=== PATIENT | female | born 1990 | race Caucasian/White ===

== ENCOUNTER 2016-08-20 15:47 | Emergency (ER) | payer OTHER ==
[~2016-08-20] VITALS: Ht 162.6 cm; Wt 76.5 kg
[~2016-08-20 15:47] MED LIST: PANT40TA4 PO; [UNRECOGNIZED DRUG - OTHER]
[2016-08-20 15:52] VITALS: Ht 162.6 cm; Wt 76.5 kg
[2016-08-20 17:40] LABS: ADD SCAN DIFF NO
[2016-08-20 17:43] LABS: BASOPHIL # 0.1 10^3/ul (0.0-0.1); BASOPHILS % 0.6 % (0.0-2.0); EOSINOPHILS # 0.9 10^3/ul (0.0-0.5); EOSINOPHILS % 9.6 % (0.0-7.0); HEMATOCRIT 37.9 % (37.0-47.0); HEMOGLOBIN 12.1 g/dl (12.0-16.0); LYMPHOCYTES # 1.6 10^3/ul (0.8-2.9); LYMPHOCYTES % 16.5 % (15.0-51.0); MEAN CORPUSCULAR HEMOGLOBIN 29.4 pg (29.0-33.0); MEAN CORPUSCULAR HGB CONC 31.9 g/dl (32.0-37.0); MEAN PLATELET VOLUME 9.5 fl (7.4-10.4); MONOCYTE # 0.8 10^3/ul (0.3-0.9); MONOCYTES % 7.6 % (0.0-11.0); NEUTROPHIL # 6.4 10^3/ul (1.6-7.5); NEUTROPHILS % 65.3 % (39.0-77.0); PLATELET COUNT 432 10^3/UL (140-415); RED BLOOD COUNT 4.12 10^6/ul (4.20-5.40); RED CELL DISTRIBUTION WIDTH 14.4 % (11.5-14.5); WHITE BLOOD COUNT 9.8 10^3/ul (4.8-10.8)
--- NOTE | 2016-08-20 17:43 | RADRPT ---
PROCEDURE: US OB. CLINICAL INDICATION: Vaginal bleeding. TECHNIQUE: Transabdominal imaging of the gravid uterus was performed. Images are reviewed on a h igh-resolution PACS workstation. COMPARISON: None available. FINDINGS: A single intrauterine is identified. The crown-rump length equals 1.83 cm. The estimated gestational age equals 7 weeks 6 days by ultrasound criteria. No cardiac activity is identifi ed.. No subchorionic hemorrhage is identified. The uterus measures 9.0 x 5.5 cm. The ovaries are not identified. There are no adnexal masses and th ere is no free fluid within the pelvis. IMPRESSION: 1. Single intrauterine with an estimated gestational age of 7 weeks 6 days by ultrasound criteria with no cardiac activity, consistent with a failed early . Short interval f ollow-up is recommended. These findings discussed with Dr. Sandra in the ED at 1736 hours on 08/20/2016. RPTAT: GG .Tra Pinto MD, MD Date Time Electronically viewed and signed by .Tra Pinto MD, MD on 08/20/2016 17:42 .P/
[2016-08-20 17:53] LABS: ADD UMIC YES; URINE BILIRUBIN (Dip) NEGATIVE (NEGATIVE); URINE BLOOD (Dip) NEGATIVE (NEGATIVE); URINE COLOR LT. YELLOW (YELLOW); URINE GLUCOSE (Dip) NEGATIVE (NEGATIVE); URINE KETONES (Dip) NEGATIVE (NEGATIVE); URINE LEUKOCYTE ESTERASE (Dip) TRACE (NEGATIVE); URINE NITRITE (Dip) NEGATIVE (NEGATIVE); URINE TOTAL PROTEIN (Dip) NEGATIVE (NEGATIVE); URINE UROBILINOGEN (Dip) 0.2 E.U./dL (0.1-1.0)
[2016-08-20 18:03] LABS: SQUAMOUS EPITHELIAL CELL,UR FEW; URINE RBCS NONE SEEN /HPF (0)
[2016-08-20 18:25] VITALS: BP 122/84; PULSE 101; RESP 16
--- NOTE | 2016-08-20 18:46 | ERD ---
ER Documentation Chief Complaint Date/Time DATE: 08/20/16 TIME: 18:44 Chief Complaint NEEDS ULTRASOUND, LMP 06/10/16, HAD U/S YESTERDAY NO HEART BEAT HPI Patient is a 25-year-old female with no medical problems who presents for an ultrasound. The patient said that she went to her OB clinic twice to get an ultrasound but the machine was not working. Yesterday she had an ultrasound done but they could not hear her heartbeat. She says "I need to know if there is a heartbeat and how far along I am". She has no vaginal bleeding and no cramping. She has no other complaints. Her last mental period was June 10. ROS All systems reviewed and are negative except as per history of present illness. Medications Home Meds Reported Medications Pantoprazole* (Pantoprazole*) 40 Mg Tablet.dr, 40 MG PO DAILY, TAB 06/07/14 [Delzityl] No Conflict Check 06/07/14 Allergies Allergies: Coded Allergies: No Known Allergy (Unverified , 04/13/14) PMhx/Soc Anesthesia Reaction: No Hx Neurological Disorder: No Hx Respiratory Disorders: No Hx Cardiac Disorders: No Hx Psychiatric Problems: No Hx Miscellaneous Medical Probl: No Hx Alcohol Use: No Hx Substance Use: No Hx Tobacco Use: No FmHx Family History: diabetes Physical Exam Vitals Vital Signs Date Time Temp Pulse Resp B/P Pulse Ox O2 Delivery O2 Flow Rate FiO2 08/20/16 18:25 101 16 122/84 100 Room Air 08/20/16 15:52 98.4 95 18 122/68 100 Physical Exam Const: No acute distress Head: Atraumatic Eyes: Normal Conjunctiva ENT: Normal External Ears, Nose and Mouth. Neck: Full range of motion..~ No meningismus. Resp: Clear to auscultation bilaterally Cardio: Regular rate and rhythm, no murmurs Abd: Soft, non tender, non distended. Normal bowel sounds Skin: No petechiae or rashes Back: No midline or flank tenderness Ext: No cyanosis, or edema Neur: Awake and alert Psych: Normal Mood and Affect Result Diagram: 08/20/16 1730 Results 24 hrs Laboratory Tests Test 08/20/16 17:30 White Blood Count 9.810^3/ul Red Blood Count 4.1210^6/ul Hemoglobin 12.1g/dl Hematocrit 37.9% Mean Corpuscular Volume 92.0fl Mean Corpuscular Hemoglobin 29.4pg Mean Corpuscular Hemoglobin Concent 31.9g/dl Red Cell Distribution Width 14.4% Platelet Count 27641^3/UL Mean Platelet Volume 9.5fl Neutrophils % 65.3% Lymphocytes % 16.5% Monocytes % 7.6% Eosinophils % 9.6% Basophils % 0.6% Nucleated Red Blood Cells % 0.0/100WBC Neutrophils # 6.410^3/ul Lymphocytes # 1.610^3/ul Monocytes # 0.810^3/ul Eosinophils # 0.910^3/ul Basophils # 0.110^3/ul Nucleated Red Blood Cells # 0.010^3/ul Urine Color LT. YELLOW Urine Clarity CLEAR Urine pH 6.0 Urine Specific [place] <=1.005 Urine Ketones NEGATIVE Urine Nitrite NEGATIVE Urine Bilirubin NEGATIVE Urine Urobilinogen 0.2 E.U./dL Urine Leukocyte Esterase TRACE Urine Microscopic RBC NONE SEEN/HPF Urine Microscopic WBC 2-5/HPF Urine Squamous Epithelial Cells FEW Urine Hemoglobin NEGATIVE Urine Glucose NEGATIVE% Urine Total Protein NEGATIVE Procedures/MDM Ultrasound shows missed per radiology. Patient is a 25-year-old female presents for ultrasound. Her ultrasound unfortunately shows a miscarriage. Laboratory studies are basically normal. The patient will be discharged. She has no bleeding at this time. She will need to follow-up with her OB clinic for dilation and curettage. The patient can return for any worsening symptoms. She has no signs of ectopic at this time. Departure Diagnosis: Primary Impression: Missed Condition: Fair Patient Instructions: Missed Miscarriage Referrals: Your OB clinic Additional Instructions: SPECIALIST: YOU HAVE A MEDICAL CONDITION WHICH REQUIRES YOU TO SEE A SPECIALIST WITHIN THE NEXT 1-2 DAYS. PLEASE FOLLOW UP WITH YOUR PRIMARY PHYSICIAN FOR REFFERAL.IF YOU DO NOT HAVE A PRIMARY CARE PHYSICIAN AND/OR YOU CAN NOT AFFORD TO SEE A PHYSICIAN THE FOLLOWING RESOURCES HAVE BEEN SUPPLIED TO YOU. IT IS YOUR RESPONSIBILITY TO BE SEEN BY THE SPECIALIST IGOR BENSON MD August 20, 2016 18:46
== END 2016-08-20 18:26 | disposition home or self-care (01) ==
LOC: FTE 15:47
DX: O02.1 Missed abortion (principal)
CPT/HCPCS: 76801; 81001; 84702; 85025; 86900; 86901; Z7502; 81003

== ENCOUNTER 2017-11-06 22:12 | Emergency (ER) | END 2017-11-06 23:12 | disposition left against medical advice (07) ==

== ENCOUNTER 2018-04-03 22:33 | Inpatient (IN) | payer OTHER ==
[~2018-04-03] VITALS: Ht 157.5 cm; Wt 99.7 kg
[2018-04-03 22:53] VITALS: BP 115/55; PULSE 91; RESP 17; Ht 157.5 cm; Wt 99.7 kg
[2018-04-04] MEDS ORDERED: MAGNESIUM SULFATE 4 GM/100 ML 100 ML IV ONE (00:30)
[2018-04-04] MEDS ORDERED: ACETAMINOPHEN 325 MG TAB PO PRN (00:30)
--- NOTE | 2018-04-04 00:34 | HP ---
Date/Time of Note Date/Time of Note DATE: 04/04/18 TIME: 00:30 OB - History Hx of Present Free Text/Dictation 27-year-old 3 para 0 at 33 weeks and 4 days of gestation with estimated date of delivery May 18, 2018 Patient presents with chief complaint of abdominal pain She reports positive movement, denies any vaginal bleeding or leaking fluid Patient obstetrical history significant for termination of x2 Care: Good Care Obstetrical Complications: None Medical Complications: None Past Family/Social History * Past Medical, Surgical, Family and Obstetric Histories reviewed from chart. OB Admission Exam Vital Signs Vital Signs Vital Signs Date Temp Pulse Resp B/P (MAP) Pulse Ox O2 O2 Flow FiO2 Time Delivery Rate 04/03/18 98.2 91 17 115/55 Room Air 22:53 (75) Physical Exam HEENT: WNL Heart: Rhythm Normal Lungs: Clear, Equal Abdomen: WNL Extremities: Normal Reflexes: Normal Membranes: Intact Heart Rate: 140's Accelerations: Accelerations Present Decelerations: No Decelerations Varibility: Moderate Contractions on Admission: None Last 72 hours Lab Results PROCEDURE: US OB biophysical profile. CLINICAL INDICATION: well-being TECHNIQUE: Multiple sonographic images of the pelvis were obtained. The images were reviewed on a PACS workstation. COMPARISON: None FINDINGS: There is a single fetus in longitudinal lie, cephalic presentation. Cardiac activity is documented at 131 beats per minute. . The placenta is anterior and well clear of the cervix. Amniotic fluid index equals 10.9. Biophysical profile: movement 2/2 tone 2/2. breathing 2/2 CHRISTINA 2/2 Total 11/17 IMPRESSION: 1. Biophysical profile of 11/17. RPTAT:AAJJ . Physician Stanley Date Time Electronically viewed and signed by Physician Stanley on 04/04/2018 00:53 GW/ CC: GAMAL CALABRESE MD [id number] PROCEDURE: US OB. CLINICAL INDICATION: labor, estimated weight TECHNIQUE: Multiple sonographic images of the pelvis were obtained. The images were reviewed on a PACS workstation. COMPARISON: 12/31/2017 FINDINGS: The cervix length is 1.2 cm measured transvaginally . There is a single viable intrauterine gestation. Cardiac activity is present with 134 beats per minute. The fetus is in longitudinal lie, cephalic presentation.. Measurements were made in order to determine age. The results are as follows: BPD = 8.1 cm HC = 29.9 cm AC = 32.6 cm FL = 6.6 cm. Based on these current measurements: Estimated gestational age of approximately 34 weeks 0 days. Estimated gestational age by LMP or early exam is 33 weeks 5 days. The estimated date of delivery is 05/16/2018. Estimated date of delivery by LMP or early exam is 05/18/2018. The EFW = 2.57 kg . Complete survey is not performed at this time. The placenta is anterior. There is no evidence of abruption or placenta previa. There is a normal amount of amniotic fluid with an CHRISTINA = 10.9. MVP = 4.1 cm. IMPRESSION: 1. Single live intrauterine fetus at approximately 34 weeks 0 days by the above biometrics. The estimated weight is 2.57 kg . 2. Longitudinal lie, cephalic presentation. 3. Unremarkable anterior placenta. 4. Amniotic fluid index equals 10.9. MVP= 4.1 cm. RPTAT:AAJJ Physician Stanley Date Time Electronically viewed and signed by Physician Stanley on 04/04/2018 00:56 GW/ CC: GAMAL CALABRESE MD [id number] OB Assessment/Plan Reason for admission: labor (Cervical shortening/cervical incompetence measuring 1.2 cm) Other plan: Admit to labor and delivery Magnesium sulfate for prevention of labor and neuro protection Betamethasone for lung maturity Antibiotics prophylaxis Both perinatology and neonatology consult GAMAL CALABRESE MD Apr 04, 2018 00:34
[2018-04-04] MEDS ORDERED: AMPICILLIN 1 GM/NS (PMX) 50 ML IVPB SCH (01:00)
[2018-04-04] MEDS ORDERED: AMPICILLIN 2 GM/NS (PMX) 100 ML IVPB ONE (01:00)
[2018-04-04] MEDS: LACTATED RINGER'S 1,000 ML IV SCH ×3 (02:00→20:15)
[2018-04-04] MEDS: BETAMET NA PHOS/AC(6 MG/ML) 2 ML INJ SYG IM SCH (02:00)
[2018-04-04] MEDS: MAGNESIUM SULFATE 20 GM/500 ML 500 ML IV SCH ×2 (02:33→15:33)
[2018-04-04] MEDS: AMPICILLIN 1 GM/NS (PMX) 50 ML IVPB SCH ×5 (05:43→21:14)
[2018-04-04] MEDS: PRENATAL VITAMIN PO SCH (08:49)
--- NOTE | 2018-04-04 15:40 | QN ---
Documentation Comment 33+wks GA with suspected PTL No CTXs+FM No VB No LOF NST reassuring for GA [place] No CTXs Pelvic Deferred --->Continuos monitoring --->Close Observation EUGENIO LOPEZ M.D. Apr 04, 2018 15:40
--- NOTE | 2018-04-04 16:35 | CONS ---
Date/Time of Note Date/Time of Note DATE: 04/04/18 TIME: 15:55 Consultation Date/Type/Reason Admit Date/Time Apr 04, 2018 at 01:30 Date of Consultation: Apr 04, 2018 Type of Consult Medicine Reason for Consultation [employer] Reporter parents of potential problems and outcome of delivery at 33 completed weeks Requesting Provider: SCOUT SIMON MD Hx of Present Illness Requested by Dr. Simon to adult school counselor parents on potential complications and outcome of delivery at 33 completed weeks gestation. Met with parents at bedside. Patient is a 27 yo O+ [id number] with EDC 05/18/2018 (EGA 33 5/7wks) based on LMP and early U/S. Mother with uncomplicated until onset of abdominal pain 04/03. No history of bleeding or leakage of fluid. Presented to L&D in labor with intact membranes. U/S demonstrated cephalic presentation, EFW ~ 2570 gm, nl CHRISTINA, and BPP 8/8. Cervical shortening noted @ 1.2 cm. Mother treated with MgSO4, Ampicillin, and initial dose of Betamet hasone. Contractions have stopped. Discussed with parents very high probability of survival but requirement for admission to NICU at this gestation. Discussed possibility of respiratory distress requiring support and problems related to nipple feeding ability and temperature maintenance. Briefly discussed infection and respiratory drive immaturity. Discussed the rationale for Mg, steroids, and antibiotics in order to prolong gestation. Parents appeared to understand. Assured parents of availability to answer further questions which may arise. Past Medical History Medications Current Medications Lactated Ringer's 1,000 ml @ 125 mls/hr Q8H IV Last administered on 04/04/18at 02:00; Admin Dose 125 MLS/HR; Start 04/04/18 at 00:20 Magnesium Sulfate 500 ml @ 50 mls/hr Q10H IV Last administered on 04/04/18at 15:33; Admin Dose 50 MLS/HR; Start 04/04/18 at 00:20 Betamethasone Acet/Betameth SodPhos (Celestone Soluspan) 12 mg Q24H IM Last administered on 04/04/18at 02:00; Admin Dose 12 MG; Start 04/04/18 at 00:30; Stop 04/05/18 at 00:31 Prenat Multivit/ Quality Assurance/R&D Lab Technician/Iron/Folic Ac () 1 tab DAILY PO Last administered on 04/04/18 08:49; Admin Dose 1 TAB; Start 04/04/18 at 09:00 Acetaminophen (Tylenol Tab) 650 mg Q4H PRN PO MILD PAIN(1-3)OR ELEVATED TEMP Last administered on 04/04/18 10:41; Admin Dose 650 MG; Start 04/04/18 at 00:30 Ampicillin 50 ml @ 100 mls/hr Q4 IVPB Last administered on 04/04/18 12:42; Admin Dose 100 MLS/HR; Start 04/04/18 at 06:00 Allergies: Coded Allergies: No Known Allergy (Unverified , 04/13/14) Social History Smoking Status: Never smoker Exam/Review of Systems Vital Signs Vitals Vital Signs Date Temp Pulse Resp B/P (MAP) Pulse Ox O2 O2 Flow FiO2 Time Delivery Rate 04/03/18 98.2 91 17 115/55 Room Air 22:53 (75) Intake and Output 04/03/18 04/03/18 04/04/18 1515:00 23:00 07:00 IntakeIntake Total 800 ml OutputOutput Total 750 ml BalanceBalance 50 ml Medications Medications Current Medications Lactated Ringer's 1,000 ml @ 125 mls/hr Q8H IV Last administered on 04/04/18 02:00; Admin Dose 125 MLS/HR; Start 04/04/18 at 00:20 Magnesium Sulfate 500 ml @ 50 mls/hr Q10H IV Last administered on 04/04/18 15:33; Admin Dose 50 MLS/HR; Start 04/04/18 at 00:20 Betamethasone Acet/Betameth SodPhos (Celestone Soluspan) 12 mg Q24H IM Last administered on 04/04/18 02:00; Admin Dose 12 MG; Start 04/04/18 at 00:30; Stop 04/05/18 at 00:31 Prenat Multivit/ Carmi/Iron/Folic Ac () 1 tab DAILY PO Last administered on 04/04/18 08:49; Admin Dose 1 TAB; Start 04/04/18 at 09:00 Acetaminophen (Tylenol Tab) 650 mg Q4H PRN PO MILD PAIN(1-3)OR ELEVATED TEMP Last administered on 04/04/18 10:41; Admin Dose 650 MG; Start 04/04/18 at 00:30 Ampicillin 50 ml @ 100 mls/hr Q4 IVPB Last administered on 04/04/18at 12:42; Admin Dose 100 MLS/HR; Start 04/04/18 at 06:00 ZHEN LOGAN MD Apr 04, 2018 16:34
[2018-04-05] MEDS: AMPICILLIN 1 GM/NS (PMX) 50 ML IVPB SCH ×6 (01:44→21:03)
[2018-04-05] MEDS: MAGNESIUM SULFATE 20 GM/500 ML 500 ML IV SCH ×3 (01:58→19:00)
[2018-04-05] MEDS: BETAMET NA PHOS/AC(6 MG/ML) 2 ML INJ SYG IM SCH (01:59)
[2018-04-05] MEDS: LACTATED RINGER'S 1,000 ML IV SCH ×3 (08:22→20:00)
[2018-04-05] MEDS: PRENATAL VITAMIN PO SCH (08:46)
--- NOTE | 2018-04-05 12:00 | QN ---
Documentation Comment 33+wks GA with suspected PTL No CTXs+FM No VB No LOF NST reassuring for GA [place] No CTXs Pelvic Deferred --->Continuos monitoring --->Close Observation EUGENIO LOPEZ M.D. Apr 05, 2018 12:00
[2018-04-06] MEDS: MAGNESIUM SULFATE 20 GM/500 ML 500 ML IV SCH (00:01)
[2018-04-06] MEDS: LACTATED RINGER'S 1,000 ML IV SCH (00:01)
[2018-04-06] MEDS: AMPICILLIN 1 GM/NS (PMX) 50 ML IVPB SCH ×3 (01:50→08:55)
[2018-04-06] MEDS: PRENATAL VITAMIN PO SCH (08:55)
--- NOTE | 2018-04-06 18:55 | DS ---
Date/Time of Note Date/Time of Note DATE: 04/06/18 TIME: 18:51 Obstetrical Discharge Record Final Diagnosis Final Diagnosis: not delivered Other Final Diagnosis 27-year-old vessel intrauterine at 34 weeks with a HALIMA of 05/18/2018 admitted for 3 threatened labor on 04/04/2018. on ultrasound cervical length was 1.7 cm. She has received magnesium sulfate, and 2 doses of betamethasone. Last dose of betamethasone was at 2 AM on 04/05/2018, currently steroid benefited. heart rate is category 1. She has no uterine contractions. ultrasound for cervical length performed today which is a 1.8 cm. Sign and symptom of labor, preeclampsia and kick count discussed with patient in detail. She expressed understanding all of her questions answered. Patient discussed with Dr. Nohelia Sahni who is recommending discharge patient home. I strongly recommend relative bedrest, ALEXANDER hose given to use when she is at home and resting. I recommended avoid intercourse. She will have follow-up with her primary OB in 2-3 days. I strongly recommend come back to triage if she is experiencing any further uterine contractions or bleedi ng. Condition on Discharge Physical Assessment Voiding: Yes Calf Tenderness: No Patient Condition: Stable ELOY SHUKLA Apr 06, 2018 18:55
== END 2018-04-06 12:33 | disposition home or self-care (01) | DRG 832 ==
LOC: OBT 22:33 → L-D 22:35 → OBT 04-04 01:30 → PP1 04-04 01:30
PROVIDERS: ADMIT Obstetrics & Gynecology; ATTEND Obstetrics & Gynecology
DX: O60.03 Preterm labor without delivery, third trimester (principal); O26.873 Cervical shortening, third trimester; Z3A.33 33 weeks gestation of pregnancy
CPT/HCPCS: 36415; 76815; 76817; 76818; 80053; 81001; 83735; 85025; 86850; 86900; 86901; 87081; 96360; 96372; G0463; J0290; J0702; J3475; J7120